=== PATIENT | female | born 1930 | race Caucasian/White ===

== ENCOUNTER → 2016-05-29 | Outpatient (CLI) | payer MEDICARE, OTHER | LOC: FIMAGING 10:52 | DX: Z12.31 Encounter for screening mammogram for malignant neoplasm of breast (principal) | CPT/HCPCS: G0202 ==

== ENCOUNTER → 2016-08-26 | Outpatient (CLI) | payer OTHER, MEDICAID ==
[~2016-08-26] MED LIST: IOPAMIDOL (ISOVUE-300) 100 ML BTL ONE
== END ==
LOC: CIMAGING 08:52
PROVIDERS: ATTEND Family Medicine
DX: R91.1 Solitary pulmonary nodule (principal); K44.9 Diaphragmatic hernia without obstruction or gangrene; I25.10 Atherosclerotic heart disease of native coronary artery without angina pectoris; Q79.0 Congenital diaphragmatic hernia; R93.2 Abnormal findings on diagnostic imaging of liver and biliary tract
CPT/HCPCS: 71260; Q9967